=== PATIENT | male | born 2000 | race African-American/Black ===

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

== ENCOUNTER → 2023-05-11 | Outpatient (CLI) | payer BC ==
[2023-05-11 11:00] LABS: CLARITY URINE CLEAR (CLEAR); COLOR URINE YELLOW (YELLOW); GLUCOSE URINE NEGATIVE (NEGATIVE); KETONES URINE NEGATIVE (NEGATIVE); LEUKOCYTE ESTERASE URINE TRACE (NEGATIVE); NITRITE URINE NEGATIVE (NEGATIVE); OCCULT BLOOD URINE NEGATIVE (NEGATIVE); PH URINE 5.5 (4.5-8.0); PROTEIN URINE NEGATIVE (NEGATIVE); SPECIFIC GRAVITY URINE 1.026 (1.005-1.030); UROBILINOGEN URINE 0.2 E.U./dL (0.2-1.0)
[2023-05-11 11:12] LABS: CHLORIDE 109 mEq/L (98-107); INDEX HEMOLYSI 1 (1-3); INDEX ICTERIC 1 (1-4); INDEX LIPEMIC 1 (1-3); SODIUM 138 mEq/L (136-145)
[2023-05-11 11:17] LABS: BASOPHILS % 0.7 % (0.0-2.0); EOSINOPHILS % 4.1 % (0.0-5.0); HEMATOCRIT. 42.5 % (42.0-52.0); LYMPHOCYTES % 51.9 % (20.0-50.0); MEAN CORPUSCULAR HEMOGLOBIN 28.5 pg (28.0-32.0); MEAN CORPUSCULAR HGB CONC 32.9 g/dL (31.0-37.0); MEAN CORPUSCULAR VOLUME 86.6 fL (80.0-94.0); MEAN PLATELET VOLUME 8.5 fl (7.4-10.4); MONOCYTES % 8.4 % (2.0-8.0); NEUTROPHILS % 34.9 % (40.0-76.0); PLATELET 259 x1000/uL (130-400); RED BLOOD CELL COUNT 4.91 mill/uL (4.7-6.1); RED CELL DISTRIBUTION WIDTH 13.9 % (11.6-14.6); WHITE BLOOD COUNT 4.2 x1000/uL (4.5-11.0)
[2023-05-11 11:31] LABS: ALANINE AMINOTRANSFERASE 59 IU/L (13-61); ALBUMIN 3.9 g/dL (3.4-5.0); ASPARTATE AMINOTRANSFERASE 29 IU/L (15-37); BILIRUBIN TOTAL 0.4 mg/dL (0.1-1.0); CALCIUM 9.1 mg/dL (8.5-10.1); CARBON DIOXIDE 29 mEq/L (21-32); CHOLESTEROL 135 mg/dL (<200); CREATININE 0.9 mg/dL (0.6-1.3); GLUCOSE 91 mg/dL (70-105); HDL CHOLESTEROL 62 mg/dL (40-59); IRON 79 ug/dL (50-175); LDL CHOLESTEROL 69 mg/dL (5-100); PROTEIN TOTAL 8.1 g/dL (6.0-8.3); T4 FREE 0.89 ng/dL (0.76-1.46); THYROID STIMULATING HORMONE 0.41 uIU/mL (0.36-3.74); TOTAL IRON BINDING CAPACITY 368 ug/dL (250-450); TRIGLYCERIDE 53 mg/dL (0-150); UREA NITROGEN BLOOD 11 mg/dL (7-21)
[2023-05-11 11:53] LABS: BACTERIA URINE TRACE; SQUAMOUS EPITHELIAL CELL URINE 1+ /lpf (RARE/1+)
[2023-05-11 11:54] LABS: MUCUS URINE TRACE /lpf (NONE/TRACE)
[2023-05-11 11:55] LABS: RBC URINE NONE SEEN /hpf (0-2)
[2023-05-11 12:27] LABS: ERYTHROCYTE SEDIMENTATION RATE 6 mm/hr (0-15)
[2023-05-11 12:30] LABS: FOLIC ACID (FOLATE) SERUM 10.5 ng/mL (>5.38)
== END | disposition home or self-care (01) ==
LOC: LAB 10:34
PROVIDERS: ATTEND Family Medicine Adult Medicine
DX: Z00.00 Encounter for general adult medical examination without abnormal findings (principal); R53.83 Other fatigue; D51.0 Vitamin B12 deficiency anemia due to intrinsic factor deficiency; D50.9 Iron deficiency anemia, unspecified
CPT/HCPCS: 36415; 80053; 80061; 81003; 82306; 82607; 82728; 82746; 83036; 83540; 83550; 84439; 84443; 84481; 85025; 85651

== ENCOUNTER 2023-08-24 10:44 | Emergency (ER) | payer BC ==
[~2023-08-24] VITALS: Ht 195.6 cm; Wt 107.0 kg
[2023-08-24 10:50] VITALS: BP 116/55; PULSE 96; RESP 16; TEMP 98.5; O2SAT 99
[2023-08-24] MEDS ORDERED: HYDR-4001 MT ×3 (14:43→15:05)
[2023-08-24] MEDS ORDERED: SULF1TAB48 MT ×3 (14:43→15:05)
[2023-08-24] MEDS ORDERED: IBUP-2028 MT ×3 (14:43→15:05)
[2023-08-24] MEDS ORDERED: CEPH500C2 MT ×3 (14:43→15:05)
== END 2023-08-24 15:30 | disposition home or self-care (01) ==
LOC: ER 10:44
DX: L02.31 Cutaneous abscess of buttock (principal)
CPT/HCPCS: 99283